=== PATIENT | male | born 1960 | race Caucasian/White ===

== ENCOUNTER → 2017-06-26 | Outpatient (REF) ==
[~2017-06-26] MED LIST: ALBUTEROL1.25 MG/3 IH; CIPRO 500MG TA500 MG PO; FENTANYL 75MCG TOP; LEVAQUIN 5500 MG/TA1 PO; LEVSIN0.125 M1 SL; MSIR30 MG PO; PEPCID 20MG TAB20 MG PO; PYRIDIUM 100MG100 MG PO
== END ==
LOC: ZLAB.WCH 14:27
DX: Z01.89 Encounter for other specified special examinations (principal)
CPT/HCPCS: G0103

== ENCOUNTER → 2018-03-26 | Outpatient (REF) | LOC: ZLAB.WCH 17:47 | DX: Z01.89 Encounter for other specified special examinations (principal) ==

== ENCOUNTER → 2018-04-04 | Outpatient (REF) | LOC: ZLAB.WCH 14:15 | DX: Z01.89 Encounter for other specified special examinations (principal) ==

== ENCOUNTER → 2018-07-17 | Outpatient (CLI) | payer MEDICARE, BC ==
[~2018-07-17] VITALS: Ht 188 cm; Wt 100.1 kg
[~2018-07-17] MED LIST changes: +FENTANYL 50MCG TD; +PERCOCET 325 MG1 TA2 PO
[2018-07-17 12:53] VITALS: BP 167/94; PULSE 71
[2018-07-17 14:15] VITALS: BP 186/99; PULSE 78
== END ==
LOC: COL.RAD 12:33
DX: R59.0 Localized enlarged lymph nodes (principal)
CPT/HCPCS: 32106

== ENCOUNTER → 2018-07-25 | Outpatient (REF) ==
[2018-07-25 18:30] LABS: C-REACTIVE PROTEIN 1.1 mg/dL (0.0-0.9)
== END ==
LOC: ZLAB.WCH 18:15
PROVIDERS: Physician Assistant
DX: Z01.89 Encounter for other specified special examinations (principal)

== ENCOUNTER → 2019-01-03 | Outpatient (REF) ==
[2019-01-03 17:04] LABS: PSA-TOTAL 1.91 ng/mL (0-4)
[2019-01-03 17:13] LABS: THYROID STIMULATING HORMONE 1.91 uIU/mL (0.465-4.680)
== END ==
LOC: ZLAB.WCH 15:53
PROVIDERS: Physician Assistant
DX: Z01.89 Encounter for other specified special examinations (principal)
CPT/HCPCS: G0103